=== PATIENT | female | born 1990 | race African-American/Black ===

== ENCOUNTER 2017-01-30 09:42 | Emergency (ER) | payer MEDICAID ==
[~2017-01-30] VITALS: Ht 160 cm; Wt 56.7 kg
[~2017-01-30 09:42] MED LIST: NKM
[2017-01-30 09:45] VITALS: BP 91/42
[2017-01-30 10:07] LABS: APPEARANCE,URINE CLEAR; KETONES,URINE 1+ (NEGATIVE); LEUKOCYTE ESTERASE ,URINE 1+ (NEGATIVE); NITRITE,URINE NEGATIVE (NEGATIVE); PH,URINE 6 (4.5-8.0); PROTEIN,URINE 3+ (NEGATIVE); UROBILINOGEN,URINE NORMAL MG/DL (0.0-1.0)
[2017-01-30 10:16] LABS: BACTERIA,URINE FEW /HPF; MUCUS,URINE MODERATE /LPF (NONE/OCC); RBC,URINE 0-2 /HPF (0 - 2); SQUAMOUS EPITHELIAL CELL,UR MODERATE /LPF (NONE/OCC)
--- NOTE | 2017-01-30 11:03 | Emergency Room Report ---
History of Present Illness General Chief Complaint: Complications Source: Patient Present Illness HPI 26YOF ~9 weeks by LMP with left lower abd pain s/p "wrestling with boyfriend too hard." Denies vaginal bleeding, discharge, nausea/vomiting, diarrhea, fever/chills. Has NOT seen QUALITY CONTROL ASSESSOR yet Not on pre- vitamins Was previously, had Went to ED 4-5 weeks ago also for same, had ultrasound/blood tests first visit. Told to come back to "rule out ectopic" and it was ruled out on followup visit. Allergies: Coded Allergies: No Known Allergies (Unverified , 01/30/17) Patient History Past Medical History: none Past Surgical History: none Pertinent Family History: none Social History: Denies: alcohol use, drug use, smoking Last Menstrual Period: 2 months Now: Yes : 2 - 0 Para: 0 Immunizations: UTD Reviewed Nursing Documentation: PMH: Agreed, PSxH: Agreed Nursing Documentation-PMH Past Medical History: No Stated History Review of Systems All Other Systems: negative except mentioned in HPI Physical Exam Vital Signs Date Time Temp Pulse Resp B/P Pulse Ox O2 Delivery O2 Flow Rate FiO2 01/30/17 09:37 98.8 79 16 91/42 100 Room Air Sp02 EP Interpretation: reviewed, normal General Appearance: normal inspection, well appearing, no apparent distress, alert, GCS 15, non-toxic Head: normocephalic, atraumatic Eyes: bilateral eye EOMI, bilateral eye PERRL ENT: normal ENT inspection, hearing grossly normal, normal voice Neck: normal inspection, full range of motion, supple, no bony tend Respiratory: normal inspection, lungs clear, normal breath sounds, no respiratory distress, no retraction, no wheezing Cardiovascular #1: regular rate, rhythm, no edema Gastrointestinal: normal inspection, normal bowel sounds, non tender, soft, no guarding, no hernia Genitourinary: no CVA tenderness Musculoskeletal: normal inspection, back normal, normal range of motion, Kell' s Sign negative Neurologic: normal inspection, alert, oriented x3, responsive, superintendent tests III-XII nml as tested, motor strength/tone normal, speech normal Psychiatric: normal inspection, judgement/insight normal, mood/affect normal Skin: normal inspection, normal color, no rash Lymphatic: normal inspection Medical Decision Making Diagnostic Impression: Primary Impression: Abdominal pain Qualified Codes: R10.84 - Generalized abdominal pain ER Course Urine preg + No hematuria No UTI Pelvic sono: FHR 171. IUP. No other abnormalities per Tech oral report Has PMD appt tomorrow for DATA INTEGRITY ANALYST referral Advised ONLY tylenol for pain Last Vital Signs Date Time Temp Pulse Resp B/P Pulse Ox O2 Delivery O2 Flow Rate FiO2 01/30/17 09:45 98.8 16 91/42 100 Room Air 01/30/17 09:37 79 Status: improved Disposition: HOME, SELF-CARE Referrals: NON PHYSICIAN (PCP) AINSLEY NARAYAN M.D. Jan 30, 2017 11:02
[2017-01-30 11:49] VITALS: BP 103/62
[2017-01-30 12:16] VITALS: BP 104/63
[2017-01-30 12:38] VITALS: BP 104/63
--- NOTE | 2017-02-01 08:31 | Diagnostic Imaging Report ---
Indication: PAIN, patient Technique: Transabdominal and transvaginal images Comparison: None Findings: Uterus measures 7.7 cm in length by 5.4 cm AP. Within the endometrium is a gestational sac. This contains a pole with a crown-rump length of 22 mm, corresponding to an estimated gestational age of 8 weeks 6 days. There is positive heart activity, heart rate 171 beats for minute No subchorionic hemorrhage demonstrated. No myometrial abnormality. Left ovary measures 2 cm in length. Right ovary measures 3.6 cm in length. No adnexal mass. No free cul-de-sac fluid Impression: 8 weeks 6 day, by crown-rump length measurement, single live intrauterine . No unusual features
== END 2017-01-30 12:39 | disposition home or self-care (01) ==
LOC: EDBD 09:42 → EMR 10:26
DX: R10.84 Generalized abdominal pain (principal); O26.91 Pregnancy related conditions, unspecified, first trimester; Z3A.09 9 weeks gestation of pregnancy
CPT/HCPCS: 76801; 76830; 81003; 81025; 99284

== ENCOUNTER 2017-06-21 15:04 | Emergency (ER) | payer MEDICAID ==
[~2017-06-21] VITALS: Ht 160 cm; Wt 68.0 kg
[2017-06-21 15:26] LABS: APPEARANCE,URINE CLEAR; KETONES,URINE 4+ (NEGATIVE); LEUKOCYTE ESTERASE ,URINE 2+ (NEGATIVE); NITRITE,URINE NEGATIVE (NEGATIVE); PH,URINE 6 (4.5-8.0); PROTEIN,URINE 2+ (NEGATIVE); UROBILINOGEN,URINE NORMAL MG/DL (0.0-1.0)
[2017-06-21 15:33] LABS: BACTERIA,URINE FEW /HPF; RBC,URINE 0-2 /HPF (0 - 2); SQUAMOUS EPITHELIAL CELL,UR FEW /LPF (NONE/OCC)
[2017-06-21] MEDS ORDERED: Acetaminophen 500mg (ES) tab ORAL ONE (15:45)
[2017-06-21 15:47] VITALS: BP 113/63
--- NOTE | 2017-06-21 15:54 | Emergency Room Report ---
History of Present Illness General Chief Complaint: Complications Source: Patient Present Illness HPI 26-year-old female , had one in the past, sent in months , presenting with left leg pain and left-sided abdominal pain. Patient states that pain started about 3 hours ago after she stepped out of the car and landed in a weird way. Patient states that now she has been having shooting pains from her left thigh radiating to her left abdomen. Intermittent. /10. Worsened with movement. Denies any fever chills nausea vomiting abnormal vaginal discharge. Patient had a sonogram about 5 days ago which showed an IUP with good heart rate Allergies: Coded Allergies: No Known Allergies (Unverified , 01/30/17) Patient History Past Medical History: see triage record Past Surgical History: none Pertinent Family History: none Now: Yes : 1 Para: 0 Reviewed Nursing Documentation: PMH: Agreed, PSxH: Agreed Nursing Documentation-PMH Past Medical History: No Stated History Hx Asthma: Yes Review of Systems All Other Systems: negative except mentioned in HPI Physical Exam Vital Signs Date Time Temp Pulse Resp B/P (MAP) Pulse Ox O2 Delivery O2 Flow Rate FiO2 06/21/17 15:07 98.1 104 20 116/62 99 Room Air Sp02 EP Interpretation: reviewed, normal General Appearance: mild distress, other - well hydrated young female,a wake and alert Head: normocephalic, atraumatic Eyes: bilateral eye normal inspection, bilateral eye PERRL, bilateral eye EOMI ENT: normal ENT inspection, normal pharynx, normal voice, moist mucus membranes Neck: normal inspection, full range of motion, supple Respiratory: normal inspection, lungs clear, normal breath sounds, no respiratory distress, no retraction, no wheezing, speaking full sentences, chest symmetrical Cardiovascular #1: normal inspection, regular rate, rhythm, no edema, normal capillary refill Cardiovascular #2: 2+ radial (R), 2+ radial (L) Gastrointestinal: other - gravid, soft, nontender all parts of abdomen, no guarding or rigidity Musculoskeletal: other - FROM however pain with lifting L leg, no ecchymosis, no swelling, no calf tenderness or swelling Neurologic: normal inspection, alert, oriented x3, responsive, motor strength/ tone normal, sensory intact, normal gait, speech normal Psychiatric: normal inspection, judgement/insight normal, memory normal Skin: normal inspection, normal color, no rash, warm/dry, well hydrated, normal turgor Medical Decision Making Diagnostic Impression: Primary Impression: Abdominal pain during Additional Impression: UTI (urinary tract infection) ER Course 26-year-old female (1 ), 7 weeks , presenting with left sided thigh and left-sided abdominal pain DDX: At this time I am not concerned with placenta abruption as patient did not have significant trauma, no abnormal vaginal bleeding. Patient is more so complaining of left thigh pain. Appears to be muscular in nature. Low suspicion for DVT given the benign exam Other diagnoses include UTI, pyelo. Gastroenteritis, ovarian pathology Low suspicion for ectopic as patient states that she has been getting ultrasounds showing an IUP with good heart rate No focal right lower quadrant tenderness to suspected appendicitis Plan: Obtain labs, ua, ucx, ucg, pelvic sonogram ER course: Patient has remained stable during ED stay. Given Tylenol for pain Vital signs normal feels much better repeat abd exam completely nontender all quadrants leukocytosis - possibly 2/2 to also with UTI ate meal in ED without issue denies any current abd pain US performed IUP with good FHR will dc Disposition: Patient is to be discharged to home. with abx Patient is instructed to follow up with their PE ELECTRICAL ENGINEER within 5 days. Strict return precautions discussed with patient such as fever, chills, worsening/severe pain, nausea, vomiting, which may indicate severe illness. Patient verbalizes understanding and agrees with plan. Please note that this Emergency Department Report was dictated using [employer] sticker technology software, occasionally this can lead to erroneous entry secondary to interpretation by the dictation equipment Rhythm Strip EP Interpretation: Yes Rate: 70 Rhythm: NSR, no PVCs, no ectopy Laboratory Tests Test 06/21/17 15:10 06/21/17 15:38 Urine Color Yellow Urine Appearance Clear Urine pH 6 (4.5-8.0) Urine Specific [place] 1.020 (1.005-1.035) Urine Protein 2+ (NEGATIVE) H Urine Glucose (UA) Negative (NEGATIVE) Urine Ketones 4+ (NEGATIVE) H Urine Occult Blood Negative (NEGATIVE) Urine Nitrite Negative (NEGATIVE) Urine Bilirubin Negative (NEGATIVE) Urine Urobilinogen Normal MG/DL (0.0-1.0) Urine Leukocyte Esterase 2+ (NEGATIVE) H Urine RBC 0-2 /HPF (0 - 2) Urine WBC 5-10 /HPF (0 - 2) H Urine Squamous Epithelial Cells Few /LPF (NONE/OCC) Urine Bacteria Few /HPF (NONE) Human Chorionic Gonadotropin, Quant 97806 mIU/mL (1-6) H White Blood Count 20.2 K/UL (4.8-10.8) H Red Blood Count 4.11 M/UL (4.20-5.40) L Hemoglobin 12.3 G/DL (12.0-16.0) Hematocrit 38.0 % (37.0-47.0) Mean Corpuscular Volume 93 FL (80-99) Mean Corpuscular Hemoglobin 30.1 PG (27.0-31.0) Mean Corpuscular Hemoglobin Concent 32.5 G/DL (32.0-36.0) Red Cell Distribution Width 11.6 % (11.6-14.8) Platelet Count 244 K/UL (150-450) Mean Platelet Volume 5.5 FL (6.5-10.1) L Neutrophils (%) (Auto) % (45.0-75.0) Lymphocytes (%) (Auto) % (20.0-45.0) Monocytes (%) (Auto) % (1.0-10.0) Eosinophils (%) (Auto) % (0.0-3.0) Basophils (%) (Auto) % (0.0-2.0) Differential Total Cells Counted 100 Neutrophils % (Manual) 86 % (45-75) H Lymphocytes % (Manual) 9 % (20-45) L Monocytes % (Manual) 5 % (1-10) Eosinophils % (Manual) 0 % (0-3) Basophils % (Manual) 0 % (0-2) Band Neutrophils 0 % (0-8) Platelet Estimate Adequate Platelet Morphology Normal Red Blood Cell Morphology Normal Sodium Level 138 MMOL/L (136-145) Potassium Level 3.5 MMOL/L (3.5-5.1) Chloride Level 102 MMOL/L (98-107) Carbon Dioxide Level 20 MMOL/L (21-32) L Anion Gap 16 mmol/L (5-15) H Blood Urea Nitrogen 9 mg/dL (7-18) Creatinine 0.8 MG/DL (0.55-1.30) Estimate Glomerular Filtration Rate > 60 mL/min (>60) Glucose Level 74 MG/DL (74-106) Calcium Level 9.2 MG/DL (8.5-10.1) Total Bilirubin 0.3 MG/DL (0.2-1.0) Aspartate Amino Transferase (AST) 23 U/L (15-37) Alanine Aminotransferase (ALT) 22 U/L (12-78) Alkaline Phosphatase 112 U/L (46-116) Total Protein 6.9 G/DL (6.4-8.2) Albumin 2.9 G/DL (3.4-5.0) L Globulin 4.0 g/dL Albumin/Globulin Ratio 0.7 (1.0-2.7) L Lipase 141 U/L (73-393) CT/MRI/US Diagnostic Results CT/MRI/US Diagnostic Results : Imaging Test Ordered: US pelvic Impression single IUP with gestational age 29 weeks and 5 days. heart rate 133 beats per minute. Normal cervix. Last Vital Signs Date Time Temp Pulse Resp B/P (MAP) Pulse Ox O2 Delivery O2 Flow Rate FiO2 06/21/17 15:47 98.1 93 14 113/63 100 Room Air Disposition: HOME, SELF-CARE Scripts Cephalexin* (KEFLEX*) 500 Mg Capsule 500 MG ORAL Q6H for 7 Days, #28 CAP 0 Refills Prov: Navin Merlos M.D. 06/21/17 Patient Instructions: Abdominal Pain During , and Urinary Tract Infection Navin Merlos M.D. Jun 21, 2017 15:54
[2017-06-21 16:02] LABS: MEAN CORPUSCULAR HEMOGLOBIN 30.1 PG (27.0-31.0); MEAN CORPUSCULAR HGB CONC 32.5 G/DL (32.0-36.0); MEAN CORPUSCULAR VOLUME 93 FL (80-99); MEAN PLATELET VOLUME 5.5 FL (6.5-10.1); PLATELET COUNT 244 K/UL (150-450); RED BLOOD COUNT 4.11 M/UL (4.20-5.40); RED CELL DISTRIBUTION WIDTH 11.6 % (11.6-14.8); WHITE BLOOD COUNT 20.2 K/UL (4.8-10.8)
[2017-06-21 16:07] LABS: ANION GAP 16 mmol/L (5-15); CALCIUM 9.2 MG/DL (8.5-10.1); CARBON DIOXIDE 20 MMOL/L (21-32); CHLORIDE 102 MMOL/L (98-107); CREATININE 0.8 MG/DL (0.55-1.30); GLOMERULAR FILTRATION RATE > 60 mL/min (>60); POTASSIUM 3.5 MMOL/L (3.5-5.1); SODIUM 138 MMOL/L (136-145)
[2017-06-21 16:11] LABS: ALANINE AMINOTRANSFERASE 22 U/L (12-78); ALBUMIN/GLOBULIN RATIO 0.7 (1.0-2.7); ASPARTATE AMINO TRANSFERASE 23 U/L (15-37); LIPASE 141 U/L (73-393); TOTAL PROTEIN 6.9 G/DL (6.4-8.2)
[2017-06-21] MEDS ORDERED: cefTRIAXone 1 GM in NS 55 ML IVPB ONE (16:30)
[2017-06-21 17:18] LABS: BAND NEUTROPHILS % (MANUAL) 0 % (0-8); BASOPHILS % (MANUAL) 0 % (0-2); EOSINOPHILS % (MANUAL) 0 % (0-3); LYMPHOCYTES % (MANUAL) 9 % (20-45); NEUTROPHILS % (MANUAL) 86 % (45-75); PLATELET ESTIMATE ADEQUATE; PLATELET MORPHOLOGY NORMAL; TOTAL CELLS COUNTED 100
[2017-06-21 17:41] VITALS: BP 112/52
[2017-06-21] MEDS ORDERED: KEFLEX500 MG ORAL (18:19)
[2017-06-21 18:21] VITALS: BP 113/56
--- NOTE | 2017-06-22 11:24 | Diagnostic Imaging Report ---
Indication: Positive test, pelvic pain Technique: Transabdominal and transvaginal images of the uterus Comparison: None Findings: There is a single live intrauterine . Presentation is cephalic. This demonstrates heart activity with a heart rate of 133 beats per minute. Placenta is upper and posterior fundal, clears the internal cervical os. Normal ionic fluid volume, amniotic fluid index 19 cm. The cervix is closed, endocervical canal measuring 28 mm in length measurements as follows: Biparietal diameter 79 mm, 31 weeks 5 days; head circumference 277 mm, 30 weeks 2 days; abdominal circumference 257 mm, 29 weeks 6 days; femur length 60 mm, 31 weeks 3 days. Estimated gestational age by average of ultrasound measurements is 30 weeks 6 days. Estimated gestational age by dates 29 weeks 5 days. Estimated date of delivery 08/24/2017 Only limited evaluation of anatomy, due to are indication of exam. Normal four-chamber heart,, spine, extremities, cord insertion, three-vessel cord, kidneys, bladder. Impression: Positive for 30 week 6 day, by average ultrasound measurements, single live intrauterine . No unusual features
== END 2017-06-21 18:57 | disposition home or self-care (01) ==
LOC: EMR 15:55
DX: O23.43 Unspecified infection of urinary tract in pregnancy, third trimester (principal); M79.652 Pain in left thigh; D72.829 Elevated white blood cell count, unspecified; Z3A.30 30 weeks gestation of pregnancy
CPT/HCPCS: 36415; 76805; 80053; 81003; 83690; 84702; 85007; 85025; 86850; 86900; 86901; 96361; 96365; 99284; J0696